=== PATIENT | female | born 1985 | race American Indian/Alaskan Native ===

== ENCOUNTER 2017-05-02 19:34 | Emergency (ER) | payer SELFPAY ==
[2017-05-02 20:19] VITALS: BP 144/92
[2017-05-02] MEDS ORDERED: NACL 0.9% 1000 ML 1,000 ML IV ONE (20:19)
[2017-05-02 21:02] LABS: Hematocrit 32.3 % (30.3-42.9); Hemoglobin 10.8 gm/dl (10.1-14.3); Mean Corpuscular HGB Conc 33 % (30-34); Mean Corpuscular Hemoglobin 31 pg (28-32); Mean Corpuscular Volume 94 fl (79-97); Red Blood Count 3.44 M/mm3 (3.65-5.03); White Blood Count 5.2 K/mm3 (4.5-11.0)
[2017-05-02 21:03] LABS: Eosinophils % (Auto) 0.1 % (0.0-4.3); Platelet Count 487 K/mm3 (140-440)
[2017-05-02 21:04] LABS: Basophils % (Auto) 0.5 % (0.0-1.8)
[2017-05-02 21:07] LABS: INR 1.07 (0.87-1.13)
[2017-05-02 21:08] LABS: Partial Thromboplastin Time 33.8 Sec. (24.2-36.6)
[2017-05-02 21:12] LABS: Alanine Aminotransferase 54 units/L (7-56); Albumin 4.3 g/dL (3.9-5); Albumin/Globulin Ratio 1.5 %; Alkaline Phosphatase 186 units/L (35-129); Anion Gap 28 mmol/L; BUN/Creatinine Ratio 18; Blood Urea Nitrogen 7 mg/dL (7-17); Calcium 9.1 mg/dL (8.4-10.2); Carbon Dioxide 26 mmol/L (22-30); Chloride 92.1 mmol/L (98-107); Glucose 67 mg/dL (65-100); Lipase 86 units/L (13-60); Potassium 3.5 mmol/L (3.6-5.0); Sodium 143 mmol/L (137-145); Total Protein 7.2 g/dL (6.3-8.2)
[2017-05-03 04:52] LABS: Bilirubin,Urine NEG (Negative); Blood,Urine NEG (Negative); Ketones,Urine 20 mg/dL (Negative); Leukocyte Esterase,Urine NEG (Negative); Mucus,Urine 1+ /HPF; Nitrite,Urine NEG (Negative); RBC,Urine < 1.0 /HPF (0.0-6.0); Urobilinogen,Urine < 2.0 mg/dL (<2.0)
== END 2017-05-03 05:25 | disposition left against medical advice (07) ==
LOC: ED 19:34
DX: Z53.21 Procedure and treatment not carried out due to patient leaving prior to being seen by health care provider (principal)
CPT/HCPCS: 36415; 80053; 81001; 83690; 84703; 85025; 85610; 85730; 86850; 86900; 86901; 93005; 93010